=== PATIENT | female | born 1960 | race Caucasian/White ===

== ENCOUNTER 2018-10-02 07:09 | Day surgery (SDC) | payer MEDICARE ==
[2018-10-02] VITALS (16 sets, daily range): BP systolic 93–140; BP diastolic 47–82
[~2018-10-02] VITALS: Ht 157.5 cm; Wt 48.7 kg
[2018-10-02] MEDS ORDERED: normal saline 1000ml 1,000 ML IV PRN (07:30)
[2018-10-02] MEDS ORDERED: MIDAZolam 1mg/ml 10ml vial IV ONE (08:10)
[2018-10-02] MEDS ORDERED: fentaNYL/PF 50MCG/1 ML 2ML syringe IV ONE (08:10)
[2018-10-02] MEDS ORDERED: normal saline 1000ml 1,000 ML IV SCH (08:39)
[2018-10-02] MEDS ORDERED: fentaNYL/PF 50MCG/1 ML 2ML syringe IV PRN (08:40)
[2018-10-02] MEDS ORDERED: midazolam 2 mg/2 ml injection IV PRN (08:40)
[2018-10-02] MEDS ORDERED: LIDOcaine 1%/PF 5ML 10 MG/ML VIAL SQ ONE (08:40)
[2018-10-02 08:45] LABS: BASOPHILS % (AUTO) 0.5 % (0-1); EOSINOPHILS # (AUTO) 0.1 X10'3 (0-0.9); EOSINOPHILS % (AUTO) 2.1 % (0-6); HEMOGLOBIN 13.4 g/dl (12.0-16.0); LYMPHOCYTES # (AUTO) 1.1 X10'3 (1.1-4.8); LYMPHOCYTES % (AUTO) 22.5 % (21-51); MEAN CORPUSCULAR HEMOGLOBIN 31.9 PG (27.0-31.0); MEAN CORPUSCULAR HGB CONC 33.4 g/dL (33.0-36.5); MEAN CORPUSCULAR VOLUME 95.3 FL (78-98); MEAN PLATELET VOLUME 6.4 FL (7.4-10.4); MONOCYTES # (AUTO) 0.3 X10'3 (0-0.9); MONOCYTES % (AUTO) 6.8 % (2-12); NEUTROPHILS # (AUTO) 3.2 X10'3 (1.8-7.7); NEUTROPHILS % (AUTO) 68.1 % (42-75); PLATELET COUNT 194 X10'3 (140-440); RED CELL DISTRIBUTION WIDTH 13.9 % (11.5-14.5); WHITE BLOOD COUNT 4.7 X10'3 (4.5-11.0)
[2018-10-02] MEDS ORDERED: LIDOcaine 1%/PF 5ML 10 MG/ML VIAL ONE (08:50)
[2018-10-02 08:54] LABS: ALBUMIN 3.8 G/DL (3.4-5.0); ANION GAP 8 (8-16); BLOOD UREA NITROGEN 19 MG/DL (7-18); BUN/CREATININE RATIO 24.4 (6.6-38.0); CALCIUM 9.3 MG/DL (8.5-10.1); CHLORIDE 105 MMOL/L (99-107); CREATININE 0.78 MG/DL (0.40-0.90); GLUCOSE 123 MG/DL (70-104); POTASSIUM 3.9 MMOL/L (3.5-5.1); SODIUM 140 MMOL/L (135-145); TOTAL CARBON DIOXIDE 27.2 MMOL/L (24-32); eGFR 76 ML/MIN
[2018-10-02 09:07] LABS: PROTHROMBIN TIME 10.4 SECONDS (9.0-12.0)
[2018-10-02] MEDS ORDERED: fentaNYL/PF 50MCG/1 ML 2ML syringe ONE (09:11)
[2018-10-02] MEDS ORDERED: midazolam 2 mg/2 ml injection ONE (09:11)
[2018-10-02] MEDS ORDERED: HYDROcodone/acetaminophen 5mg/325mg tablet PO PRN ×2 (10:10)
[2018-10-02] MEDS ORDERED: VITC500T PO (11:47)
[2018-10-02] MEDS ORDERED: CALC-965 PO (11:48)
[2018-10-02] MEDS ORDERED: OMEG-15 PO (11:49)
[2018-10-02] MEDS ORDERED: DOCU-28 PO (11:51)
[2018-10-02] MEDS ORDERED: GINK120C PO (11:52)
[2018-10-02] MEDS ORDERED: [UNRECOGNIZED DRUG - CODE] SQ (11:54)
[2018-10-02] MEDS ORDERED: LYSI600T PO (11:55)
[2018-10-02] MEDS ORDERED: MAGN400T6 PO (11:56)
[2018-10-02] MEDS ORDERED: cannabis oil (11:58)
[2018-10-02] MEDS ORDERED: ONDA8TAB6 PO (11:59)
[2018-10-02] MEDS ORDERED: VITA1TAB20 PO (12:00)
[2018-10-02] MEDS ORDERED: ZOLP10TA5 PO (12:01)
== END 2018-10-02 12:45 | disposition home or self-care (01) ==
LOC: SSTAY O 07:09
PROVIDERS: ATTEND Radiology Diagnostic Radiology
DX: D3A.8 Other benign neuroendocrine tumors (principal); Z85.07 Personal history of malignant neoplasm of pancreas; Z79.899 Other long term (current) drug therapy; Z88.0 Allergy status to penicillin; Z88.8 Allergy status to other drugs, medicaments and biological substances; Z90.49 Acquired absence of other specified parts of digestive tract; Z90.710 Acquired absence of both cervix and uterus; Z98.890 Other specified postprocedural states
CPT/HCPCS: 36415; 47000; 77012; 80048; 85025; 85610; J2001; J2250; J3010; J7030; 99152; 99153